=== PATIENT | male | born 1970 ===

== ENCOUNTER 2019-10-06 16:45 | Inpatient (IN) | payer SELFPAY ==
[~2019-10-06 16:45] MED LIST: Aspirin Chewable 81 MG TAB ONE; Heparin 10,000 UNITS/1 ML VIAL ONE; Iopamidol 370 76% 100 ML VIAL ONE
[2019-10-06] MEDS ORDERED: Morphine 2 MG/ML SYRINGE ONE (16:58)
[2019-10-06] MEDS ORDERED: Ondansetron PF 4 MG/2 ML Vial ONE (16:58)
[2019-10-06 17:15] LABS: #Basophils 0.1 thou/uL (0.0-0.2); #Eosinphils 0.2 thou/uL (0.0-0.7); #Lymphocytes 4.2 thou/uL (1.20-3.40); #Monocytes 1.3 thou/uL (0.11-0.59); #Neutrophils 9.3 thou/uL (1.40-6.50); %Basophils 0.7 % (0.0-1.0); %Monocytes 8.4 % (0.0-10.0); %Neutrophils 61.9 % (42.0-75.0); Hemoglobin 17.6 g/dL (14.0-18.0); Mean Corpuscular HGB CONC 33.8 g/dL (32.0-36.0); Mean Corpuscular Hemoglobin 29.8 pg (27.0-31.0); Mean Corpuscular Volume 88.4 fL (78.0-98.0); Mean Platelet Volume 8.4 fL (7.4-10.4); Platelet Count 307 thou/uL (130-400); RBC Distribution Width 12.7 % (11.5-14.5); Red Blood Cell (RBC) Count 5.91 mill/uL (4.70-6.10)
[2019-10-06] MEDS ORDERED: Nitroglycerin 100MG/250ML BOT 250 ML ONE (17:16)
[2019-10-06] MEDS ORDERED: Verapamil 5 MG/2 ML VIAL ONE (17:16)
[2019-10-06] MEDS ORDERED: Adenosine 6 MG/2 ML VIAL ONE (17:16)
[2019-10-06 17:20] LABS: PTT 27.5 SEC (22.9-36.1)
[2019-10-06] MEDS ORDERED: DOPamine 400 MG/D5W 250 ML 250 ML ONE (17:33)
[2019-10-06] MEDS ORDERED: Midazolam HCl 2 mg/2 ml Vial ONE (17:33)
[2019-10-06 17:40] LABS: ALT (SGPT) 23 U/L (8-55); AST (SGOT) 23 U/L (5-34); Albumin 4.3 g/dL (3.5-5.0); Alkaline Phosphatase 78 U/L (40-110); Anion Gap 19 mmol/L (10-20); BUN (Urea Nitrogen) 19 mg/dL (8.9-20.6); Bilirubin, Total 0.3 mg/dL (0.2-1.2); CK (CPK) 255 U/L (30-200); Calc. Creatinine Clearance 0 mL/min (70-130); Calcium 9.3 mg/dL (7.8-10.44); Carbon Dioxide 18 mmol/L (22-29); Chloride 104 mmol/L (98-107); Estimated GFR-MDRD 66; Glucose 151 mg/dL (70-105); Lipase 20 U/L (8-78); Potassium 3.6 mmol/L (3.5-5.1); Protein, Total 7.3 g/dL (6.0-8.3); Sodium 137 mmol/L (136-145)
[2019-10-06] MEDS ORDERED: Aggrastat 12.5 MG/250 ML 250 ML ONE (17:51)
[2019-10-06] MEDS ORDERED: Heparin (Artline) 500 ML ONE (17:51)
[2019-10-06] MEDS ORDERED: Clopidogrel Bisulfate 300 MG TAB ONE (17:51)
--- NOTE | 2019-10-06 17:51 | CON ---
DATE OF CONSULTATION: CHIEF COMPLAINT: Acute myocardial infarction. HISTORY OF PRESENT ILLNESS: Mr. Lundy is a 49-year-old gentleman with previous history of tobacco abuse, no other past medical history, who recently presented with acute onset chest pain. It occurred 2 hours prior to presentation. He presented in the emergency room with ST elevation noted inferiorly. PAST MEDICAL HISTORY: None. SOCIAL HISTORY: Positive tobacco use. ALLERGIES: NONE. PAST SURGICAL HISTORY: None. REVIEW OF SYSTEMS: A 10-point review of systems is reviewed as above, otherwise negative. PHYSICAL EXAMINATION: GENERAL: Currently having active chest pain. VITAL SIGNS: Blood pressure 124/76, pulse 69, respirations 20. NEUROLOGIC: The patient is alert and oriented x3 with no focal neurologic deficits. HEENT: Sclerae without icterus. Mouth has moist mucous membranes with normal pallor. NECK: No JVD. Carotid upstroke brisk. No bruits bilaterally. LUNGS: Clear to auscultation with unlabored respirations. BACK: No scoliosis or kyphosis. CARDIAC: Regular rate and rhythm with normal S1 and S2. No S3 or S4 noted. No significant rubs, murmurs, thrills, or gallops noted throughout the precordium. PMI is not displaced. There is no parasternal heave. ABDOMEN: Soft, nontender, nondistended. No peritoneal signs present. No hepatosplenomegaly. No abnormal striae. EXTREMITIES: 2+ femoral and 2+ dorsalis pedis pulses. No cyanosis, clubbing, or edema. SKIN: No gross abnormalities. LABORATORY DATA: Current labs, pending. Hemoglobin 17.6, hematocrit 52, platelet count 307. IMPRESSION: 1. Acute inferior myocardial infarction. 2. Tobacco abuse. RECOMMENDATIONS: At this point, I would recommend urgent coronary angiography plus PCI. I discussed procedure in full detail with Mr. Lundy. Risks included, not limited to the following: , stroke, KS, need for emergency surgery, loss of limb, bleeding, and infection, as well as a reaction to the dye causing kidney failure and needing long-term dialysis. I also discussed the risks of PCI to include all of the above including coronary dissection and perforation in addition to acute stent thrombosis and restenosis. All questions were answered. Given the above, the patient agreed to proceed with above procedure. I also discussed drug-coated versus nondrug-coated stent placement. There were no contraindications. We will proceed if needed. He states he can take Plavix and aspirin for at least one year if needed on daily basis, understands risks of acute KS and . He would like to proceed. Job ID: [id number]
[2019-10-06] MEDS ORDERED: Acetaminophen/Codeine 30-300mg Tablet PO PRN (18:02)
[2019-10-06] MEDS ORDERED: Milk Of Magnesia 30 ML UDCUP PO PRN (18:02)
[2019-10-06] MEDS ORDERED: Zolpidem Tartrate 5 MG TAB PO PRN (18:02)
[2019-10-06] MEDS ORDERED: Mag-Al 1200 mg/1200 mg/30 ML UDCUP PO PRN (18:02)
[2019-10-06] MEDS ORDERED: Morphine 2 MG/ML SYRINGE SLOW IVP PRN (18:02)
[2019-10-06] MEDS ORDERED: Sodium Chloride 0.9% 1,000 ML IV SCH (18:15)
[2019-10-06] MEDS ORDERED: Aggrastat 12.5 MG/250 ML 250 ML IVPB SCH (18:15)
[2019-10-06 19:37] VITALS: BMI 29.4
[2019-10-06] MEDS: Atorvastatin Calcium 40 MG TAB PO SCH (21:14)
[2019-10-07 03:55] LABS: #Eosinphils 0.1 thou/uL (0.0-0.7); #Lymphocytes 1.8 thou/uL (1.20-3.40); #Monocytes 0.9 thou/uL (0.11-0.59); #Neutrophils 6.9 thou/uL (1.40-6.50); %Basophils 0.2 % (0.0-1.0); %Lymphocytes 18.4 % (21.0-51.0); %Monocytes 8.9 % (0.0-10.0); %Neutrophils 71.5 % (42.0-75.0); Hemoglobin 15.9 g/dL (14.0-18.0); Mean Corpuscular Hemoglobin 30.1 pg (27.0-31.0); Mean Corpuscular Volume 88.5 fL (78.0-98.0); Mean Platelet Volume 7.9 fL (7.4-10.4); Platelet Count 229 thou/uL (130-400); RBC Distribution Width 12.5 % (11.5-14.5); Red Blood Cell (RBC) Count 5.28 mill/uL (4.70-6.10); White Blood Cell (WBC) Count 9.6 thou/uL (4.8-10.8)
[2019-10-07 04:10] LABS: ALT (SGPT) 24 U/L (8-55); AST (SGOT) 54 U/L (5-34); Albumin 3.7 g/dL (3.5-5.0); Alkaline Phosphatase 58 U/L (40-110); Anion Gap 11 mmol/L (10-20); BUN (Urea Nitrogen) 12 mg/dL (8.9-20.6); Bilirubin, Total 0.3 mg/dL (0.2-1.2); Calc. Creatinine Clearance 137 mL/min (70-130); Calcium 8.8 mg/dL (7.8-10.44); Carbon Dioxide 23 mmol/L (22-29); Chloride 108 mmol/L (98-107); Estimated GFR-MDRD Greater than 90; Globulin 2.6 g/dL (2.4-3.5); Glucose 109 mg/dL (70-105); Potassium 3.6 mmol/L (3.5-5.1); Protein, Total 6.3 g/dL (6.0-8.3); Sodium 138 mmol/L (136-145)
[2019-10-07] MEDS: Clopidogrel Bisulfate 75 MG TAB PO SCH (08:52)
[2019-10-07] MEDS: Aspirin Chewable 81 MG TAB PO SCH (08:52)
--- NOTE | 2019-10-07 11:12 | EKG ---
Test Reason : Blood Pressure : / mmHG Vent. Rate : 075 BPM Atrial Rate : 075 BPM P-R Int : 128 ms QRS Dur : 080 ms QT Int : 390 ms P-R-T Axes : 076 -18 050 degrees QTc Int : 435 ms Normal sinus rhythm Inferior infarct , age undetermined Abnormal ECG No previous ECGs available Confirmed by DR. Geoffrey JENKINS ([id number]) on 10/07/2019 11:12:12 AM Referred By: KEVIN Confirmed By:DR. Geoffrey JENKINS
--- NOTE | 2019-10-07 18:45 | PRG ---
DATE OF SERVICE: 10/07/2019 SUBJECTIVE: Agnieszka is currently doing well. No current complaints. Blood pressure and heart rate have stabilized. OBJECTIVE: VITAL SIGNS: Blood pressure 124/63, pulse 96, respirations 20. LUNGS: Clear to auscultation. HEART: Regular rate and rhythm. ABDOMEN: Soft, nontender, nondistended. EXTREMITIES: No edema. LABORATORY DATA: Hemoglobin 15.9. Creatinine 0.84. IMPRESSION: 1. Acute myocardial infarction. 2. Tobacco abuse. 3. Cocaine abuse. RECOMMENDATIONS: 1. Mr. Lundy is doing well. 2. Counseled on cessation of all tobacco products and cocaine. 3. On aspirin, Plavix, and Lipitor. 4. Add Toprol. 5. Review echo. 6. Okay to transfer to telemetry monitoring. If stable, it will be okay for discharge in a.m. Job ID: [id number]
[2019-10-07] MEDS: Atorvastatin Calcium 40 MG TAB PO SCH (20:08)
--- NOTE | 2019-10-07 20:17 | CON ---
DATE OF CONSULTATION: 10/07/2019 HISTORY: Mr. Lundy is a 49-year-old male who was admitted with chest discomfort. He was taken emergently to the yard laborer. He has undergone coronary stenting procedure and he feels good at this time. PAST MEDICAL HISTORY: 1. Remarkable for 23+ years of cocaine use. 2. Heavy tobacco use. ALLERGIES: REPORTS NO DRUG ALLERGIES. FAMILY HISTORY: Negative for lung disease. SOCIAL HISTORY: Not obtained. REVIEW OF SYSTEMS: 10 point review of systems completed, Negative for chest pain, otherwise completely negative at time of consultation today. PHYSICAL EXAMINATION: GENERAL: He is in no distress. VITAL SIGNS: Afebrile, heart rate 79, respiratory rate 17, oximetry 96% on room air, blood pressure is 124/63. HEAD AND NECK: Unremarkable. LUNGS: Clear. HEART: Regular rhythm. No S3. No murmur. ABDOMEN: Soft and nontender. EXTREMITIES: Without clubbing, cyanosis, or edema. NEUROLOGIC: Nonfocal. LABORATORY DATA: White count 9.6, hemoglobin 15.9, platelets 229. Electrolytes are unremarkable. IMPRESSION: Status post emergent cardiac catheterization with placement of a stent. He is clinically stable to move out of the Critical Care Unit in my opinion. This was discussed with Dr. Taylor. Smoking cessation, cocaine cessation discussed. TIME SPENT: This is a 70-minute consult, with greater than 50% of the time was spent on the unit coordinating care. Job ID: [id number] MTDD
[2019-10-08] MEDS: Aspirin Chewable 81 MG TAB PO SCH (09:05)
[2019-10-08] MEDS: Clopidogrel Bisulfate 75 MG TAB PO SCH (09:05)
[2019-10-08 11:29] VITALS: TEMP 97.9
[2019-10-08 11:42] VITALS: BP 133/75
--- NOTE | 2019-10-08 16:57 | DIS ---
DATE OF ADMISSION: 10/06/2019 DATE OF DISCHARGE: 10/08/2019 DISCHARGE DIAGNOSES: 1. Acute myocardial infarction. 2. Tobacco abuse. HOSPITAL COURSE: Mr. Lundy is a 49-year-old gentleman who recently presented with acute myocardial infarction. He had inferior ST-segment elevation. 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 He underwent successful stent placement to the right coronary artery. He did have severe diffuse disease present in the LAD and circumflex artery but not felt to be flow-limiting. He did well overnight while in the ICU. He was transferred to telemetry monitoring on 10/07/2019. He ambulated without difficulties and no episodes of chest pain. Overall LVEF estimated 50% to 55% on echo. DISCHARGE MEDICATIONS: Include 1. Aspirin 81 q.a.m. 2. Atorvastatin 40 at bedtime. 3. Plavix 75 q.a.m. 4. Metoprolol 25 q.a.m. CONDITION AT DISCHARGE: Stable. ACTIVITIES: As tolerated. FOLLOWUP: With Coni Macias PA-C, in the next 1 to 2 weeks. Job ID: [id number]
== END 2019-10-08 15:13 | disposition home or self-care (01) | DRG 247 ==
LOC: ERS 16:45 → CCU 17:12 → SDC/OP 17:30 → CCU 18:31 → 2NO 10-07 15:19
PROVIDERS: ADMIT Internal Medicine Cardiovascular Disease; ATTEND Internal Medicine Cardiovascular Disease
PROC: 4A023N7 Measurement of Cardiac Sampling and Pressure, Left Heart, Percutaneous Approach (ICD-10-PCS; principal; 2019-10-06)
PROC: 027034Z Dilation of Coronary Artery, One Artery with Drug-eluting Intraluminal Device, Percutaneous Approach (ICD-10-PCS; 2019-10-06)
PROC: B2111ZZ Fluoroscopy of Multiple Coronary Arteries using Low Osmolar Contrast (ICD-10-PCS; 2019-10-06)
DX: I21.19 ST elevation (STEMI) myocardial infarction involving other coronary artery of inferior wall (principal); F17.200 Nicotine dependence, unspecified, uncomplicated; F14.10 Cocaine abuse, uncomplicated; Z71.6 Tobacco abuse counseling; Z71.51 Drug abuse counseling and surveillance of drug abuser
CPT/HCPCS: 36415; 76942; 80053; 82550; 83690; 83880; 84484; 85025; 85347; 85610; 85730; 92928; 93005; 93010; 93306; 93454; 93798; 99152; 99153; C1725; C1769; C1874; C1887; C9600; J0153; J1265; J1644; J2250; J2270; J2405; J3246; Q9967